=== PATIENT | male | born 1990 | race Two or more races ===

== ENCOUNTER 2022-02-02 02:38 | Emergency (ER) | payer OTHER, MEDICAID ==
[~2022-02-02] VITALS: Ht 182.9 cm; Wt 81.0 kg
[2022-02-02] MEDS ORDERED: LEVETIRACETAM 500MG PREMIX 100 ML IV ONE (04:00)
[2022-02-02] MEDS ORDERED: LORAZEPAM 2MG/ML CPJ IV ONE (04:00)
[2022-02-02] MEDS ORDERED: LORAZEPAM 2MG/ML CPJ IV NR (04:15)
[2022-02-02 10:48] VITALS: BP 124/67
== END 2022-02-02 10:49 | disposition home or self-care (01) ==
LOC: EDBD 02:38 → ER 02:38
DX: R56.9 Unspecified convulsions (principal)
CPT/HCPCS: 36415; 80320; 82962; 96365; 96375; 99285; J1953; J2060; G0480